=== PATIENT | female | born 1990 | race Caucasian/White ===

== ENCOUNTER → 2017-09-17 17:07 | Observation (INO) ==
[2017-09-17 16:32] LABS: Bilirubin,Urine Negative (Negative); Blood,Urine Negative (Negative); Clarity,Urine Cloudy (Clear); Color,Urine Yellow (Yellow); Glucose,Urine (UA) Normal (Normal); Ketones,Urine Negative (Negative); Leukocyte Esterase,Urine Large (Negative); Nitrite,Urine Negative (Negative); Protein,Urine Negative (Neg-Trace); Specific Gravity,Urine 1.018 (1.010-1.025); Urobilinogen,Urine Normal (Normal)
[2017-09-17 16:33] LABS: Bacteria,Urine Few per hpf (None-Few); Hyaline Casts,Urine None Seen per lpf (None-Few); RBC,Urine 0-3 per hpf (0-3); Squamous Epithelial Cell,Urine Many per lpf (None-Few); WBC,Urine 50-100 per hpf (0-3)
--- NOTE | 2017-09-17 16:40 | OB/GYN History & Physical ---
Date of Encounter: 09/17/17 Time of Encounter: 16:20 Assessment and Plan (1) 27 weeks gestation of Current visit: Yes Status: Acute (2) Decreased movement during Current visit: Yes Status: Acute - NST assessment. - UDS - UA Qualifiers: Fetus number: single or unspecified fetus Trimester: third trimester Qualified Code(s): O36.8130 - Decreased movements, third trimester, not applicable or unspecified (3) GERD (gastroesophageal reflux disease) Current visit: Yes Status: Acute - Consider PPI upon discharge. Qualifiers: Esophagitis presence: esophagitis presence not specified Qualified Code(s) : K21.9 - Gastro-esophageal reflux disease without esophagitis History of Present Illness Chief complaint: Decreased movement HPI: Ms. Thompson is a 27 year old female at 27 4/7 weeks gestation that presents for pre-term labor evaluation. Patient says that she feels decreased movement since 11 pm last night, however she says that since she has arrived to triage she has felt her baby move again normally. She denies vaginal fluid leakage and bleeding, She says that she has been keesha for the past hour every minute. She admits to SINGLETON and vision changes of blurriness throughout her but she currently denies it right now. She says she has a burning sensation in her chest whenever she lies down and occurs a few hours after she eats. This has been going on throughout her . She admits to shortness of breath with exertion but patient has a history of asthma and her SOB has been occuring for the past 3 years. She denies fever, chills. She admits to nausea and vomiting, but denies any hematemesis. She denies dysuria. She admits to one bout of diarrhea earlier this morning. HIV Ab/Ag: non-reactive T. Pallidum Ab: negative Rubella Ab: positive Varicella Ab: positive Blood Type: A+ HepBSAg: Non-reactive (06/11/17) GBS: unknown. Past Med Surg Social Fam HX - Past Medical History Medical history: asthma, migraine, other Psychiatric history: anxiety, depression - Past Surgical History Surgical History: cholecystectomy, other - Social History Smoking Status: Never smoker Smokeless Tobacco Status: No Alcohol use: none Drug use: none Obstetrical History - Pregnancies : 5 Para: 2 Term: 2 : 1 Ab's: 1 Livin Medications and Allergies Flintstones 1 tab PO DAILY 09/17/17 [History] 3 Allergy/AdvReac Type Severity Reaction Status Date / Time latex Allergy Rash Verified 04/22/17 19:43 Exam - Vital Signs Vital signs: BP: 118/65 HR: 83 FHR: 136 [place]: 15 - Constitutional Constitutional: well developed, well nourished, no acute distress, average body habitus - Lungs Respiratory exam: CTAB - Cardiovascular Cardiovascular exam: RRR, +S1, +S2 - Abdomen Abdomen: Present: bowel sounds normal, gravid, non tender - Extremities Extremities exam: full ROM, normal capillary refill, normal inspection, radial pulses palpable and symmetrical Deep Tendon Reflex Grade: 2+ Normal Results All other labs normal. - VTE Reasons for not Prescribing Prophylaxis: Treatment not Indicated - Low risk for VTE - Attending Attestation I examined this patient and my medical decision-making was reviewed with the Resident Physician. I agree with the documented findings, disposition and treatment plan as described except to the extent set forth below. MERYL Curtis
[2017-09-17 16:53] LABS: Amorphous Sediment,Urine Few (Few)
--- NOTE | 2017-09-17 17:01 | Discharge Summary ---
Date of Encounter: 09/17/17 Time of Encounter: 17:00 - Discharge Diagnosis (1) 27 weeks gestation of Priority: Primary Status: Acute Comments: patient admitted for observation (2) Decreased movement during Priority: Secondary Status: Acute Comments: REactive nst, baseline 135bpm patient reports feeling movement Qualifiers: Fetus number: single or unspecified fetus Trimester: third trimester Qualified Code(s): O36.8130 - Decreased movements, third trimester, not applicable or unspecified (3) GERD (gastroesophageal reflux disease) Priority: Secondary Status: Acute Qualifiers: Esophagitis presence: esophagitis presence not specified Qualified Code(s) : K21.9 - Gastro-esophageal reflux disease without esophagitis (4) NST (non-stress test) reactive on surveillance Priority: Secondary Status: Acute Comments: baseline 135 bpm moderate variability +15x15 accels no decels noted. - Discharge Medications Home Medications: Flintstones 1 tab PO DAILY 09/17/17 [History] Allergies/Adverse Reactions: 3 Allergy/AdvReac Type Severity Reaction Status Date / Time latex Allergy Rash Verified 04/22/17 19:43 Data Procedures and tests throughout hospitalization: Laboratory Tests 09/17/17 15:59 Urine Color Yellow Urine Clarity Cloudy A Urine pH 6.0 Ur Specific [place] 1.018 Urine Protein Negative Urine Glucose (UA) Normal Urine Ketones Negative Urine Blood Negative Urine Nitrite Negative Urine Bilirubin Negative Urine Urobilinogen Normal Ur Leukocyte Esterase Large H Urine Microscopic RBC 0-3 Urine Microscopic WBC 50-100 H Ur Squamous Epith Cells Many H Amorphous Sediment Few Urine Bacteria Few Hyaline Casts None Seen Ur Culture Indicated? YES A Labs on day of discharge: Labs from last 24 hours 09/17/17 15:59 Urine Color Yellow Urine Clarity Cloudy A Urine pH 6.0 Ur Specific [place] 1.018 Urine Protein Negative Urine Glucose (UA) Normal Urine Ketones Negative Urine Blood Negative Urine Nitrite Negative Urine Bilirubin Negative Urine Urobilinogen Normal Ur Leukocyte Esterase Large H Urine Microscopic RBC 0-3 Urine Microscopic WBC 50-100 H Ur Squamous Epith Cells Many H Amorphous Sediment Few Urine Bacteria Few Hyaline Casts None Seen Ur Culture Indicated? YES A Date of admission: 09/17/17 15:32 Primary care physician: Nicole Archuleta, VEGETABLE WASHING MACHINE OPERATOR Discharging clinician: Malika Clemente Anticipated date of discharge: 09/17/17 - Patient Status Disposition: Home, Self-Care Condition: Good Functional capacity at discharge: independent ambulation - Discharge Instructions Follow Up With: Nicole Archuleta CNP [Primary Care Provider] - Yuniel Caballero DO [Partnered Physician] - - Diet and Activity Activity: increase activity as tolerated Diet: regular diet Hospital Course CHEMICAL ENGRAVER Time Attestation: Total time spent providing and/or coordinating discharge services: Time Spent: Less than 30 minutes Exam - Constitutional General appearance IM: A&O X 3, pleasant, answers questions appropriately - Other Additional findings: FHR 135 bpm moderate variability +15x15 accels no decels noted. CAt. 1 tracing. no contractions noted. - VTE Reasons for not Prescribing Prophylaxis: Treatment not Indicated - Low risk for VTE
[2017-09-17 18:42] LABS: Amphetamine Screen,Urine Negative ng/mL (Cutoff=1000); Barbiturate Screen,Urine Negative ng/mL (Cutoff=200); Benzodiazepines Screen,Urine Negative ng/mL (Cutoff=200); Cannabinoid Screen,Urine Negative ng/mL (Cutoff = 50); Cocaine Screen,Urine Negative ng/mL (Cutoff= 300); Opiate Screen,Urine Negative ng/mL (Cutoff=300); Phencyclidine Screen,Urine Negative ng/mL (Cutoff=25)
== END | disposition home or self-care (01) ==
LOC: 1NENULAB
PROVIDERS: ADMIT Obstetrics & Gynecology; ATTEND Obstetrics & Gynecology

== ENCOUNTER → 2017-09-20 20:40 | Observation (INO) ==
[2017-09-20 17:02] LABS: Bilirubin,Urine Small (Negative); Blood,Urine Negative (Negative); Clarity,Urine Cloudy (Clear); Color,Urine Dark Yellow (Yellow); Glucose,Urine (UA) Normal (Normal); Ketones,Urine Negative (Negative); Leukocyte Esterase,Urine Moderate (Negative); Nitrite,Urine Negative (Negative); Protein,Urine Trace mg/dL (Neg-Trace); Specific Gravity,Urine > 1.030 (1.010-1.025); Urobilinogen,Urine Normal (Normal)
[2017-09-20 17:04] LABS: Bacteria,Urine Few per hpf (None-Few); RBC,Urine 0-3 per hpf (0-3); Squamous Epithelial Cell,Urine Many per lpf (None-Few); WBC,Urine 50-100 per hpf (0-3)
[2017-09-20 17:22] LABS: Hyaline Casts,Urine None Seen per lpf (None-Few); Mucus,Urine Many (Few)
--- NOTE | 2017-09-20 18:40 | OB/GYN Progress Note ---
Date of Encounter: 09/20/17 Time of Encounter: 18:29 - Assessment and Plan (1) Back pain affecting in third trimester Current Visit: Yes Status: Acute Rare contraction noted on monitor, but conitnue to complain of back pain. 1L LR bolus given. Cervical exam closed in office per Dr. Caballero note and inner os remains closed after 2 hours in triage (outer OS 2cm). Negative ferning. Vaginosis panel sent. Due to suprapubic pressure, and history of chronic UTI will give 5 days of macrobid. Pt states pain and cramping improved with bolus. Discharged to home with labor precautions. (2) 28 weeks gestation of Current Visit: Yes Status: Acute Subjective - Subjective Interval history: 28+0 weeks presents to triage from MD office with complaints of suprapubic and back pain. Pt states pain was sudden onset this morning prior to her appointment. No pain last night. No recent sexual activity. Pt states movement is present, but decreased from the last few days. Complains of vaginal discharge, but denies bleeding or leaking of fluid. Denies frequency of urination or dysuria, but states has a history of chronic UTI and prior to took daily preventative medication. Antepartum ROS: movement normal, contractions, no loss of fluid, no vaginal bleeding Objective - Vital Signs Vital Signs: Intake and Output 09/20/17 09/20/17 09/20/17 07:59 15:59 23:59 Other: Weight 93.1 kg Patient Weight 09/20/17 23:59 Weight 93.1 kg - Exam FHR: category 1 FHR comments: Baseline 150 15x15 accels noted Auscultation: bilateral: normal Abdomen: Present: normal appearance, soft, gravid Uterus: Present: normal Cervical dilation: Closed inner OS./long/ballotable Comments: negative CVA tenderness - Labs Labs: Abnormal lab results Urine Clarity Cloudy (Clear) A 09/20/17 16:50 Ur Specific [place] > 1.030 (1.010-1.025) H 09/20/17 16:50 Urine Bilirubin Small (Negative) H 09/20/17 16:50 Ur Leukocyte Esterase Moderate (Negative) H 09/20/17 16:50 Urine Microscopic WBC 50-100 per hpf (0-3) H 09/20/17 16:50 Ur Squamous Epith Cells Many per lpf (None-Few) H 09/20/17 16:50 Urine Mucus Many (Few) H 09/20/17 16:50 Ur Culture Indicated? YES (NO) A 09/20/17 16:50
[2017-09-20 20:06] LABS: Candida DNA ***DETECTED*** (Not Detect); Gardnerella DNA Not Detected (Not Detect); Trichomonas DNA Not Detected (Not Detect)
[~2017-09-20 20:40] MED LIST: FLUARIX QUAD 2017-18 36MOS UP/PF 0.5 ML SYRINGE IM ONE; Ringers Solution, Lactated 1,000 ML IVC ONE
[2017-09-21 00:19] LABS: Amphetamine Screen,Urine Negative ng/mL (Cutoff=1000); Barbiturate Screen,Urine Negative ng/mL (Cutoff=200); Benzodiazepines Screen,Urine Negative ng/mL (Cutoff=200); Cannabinoid Screen,Urine Negative ng/mL (Cutoff = 50); Cocaine Screen,Urine Negative ng/mL (Cutoff= 300); Opiate Screen,Urine Negative ng/mL (Cutoff=300); Phencyclidine Screen,Urine Negative ng/mL (Cutoff=25)
== END | disposition home or self-care (01) ==
LOC: 1NENULAB
PROVIDERS: ADMIT Obstetrics & Gynecology; ATTEND Obstetrics & Gynecology

== ENCOUNTER → 2017-10-18 20:08 | Observation (INO) ==
--- NOTE | 2017-10-18 19:21 | OB/GYN Progress Note ---
Date of Encounter: 10/18/17 Time of Encounter: 19:16 - Assessment and Plan (1) Constipation Current Visit: Yes Status: Acute at 32 0/7 EGA with perineal pressure with bowel movements - reports constipation for several days with hard bowel movement on Sunday and nothing since. Pt states this is a chronic problem. Pt does not take any stool softners or laxatives. Denies LOF, VB, VD, or CTX Reports some decreased FM today, but feeling movement here at L&D - T category I Will give dose of Colace and send with a prescription for Colace If still not having BMs regularly she is to take milk of magnesia Pt is stable and able to be discharged home. Discussed when to return to [facility] or call provider. Pt verbalizes understanding. Qualifiers: Constipation type: unspecified constipation type Qualified Code(s): K59.00 - Constipation, unspecified (2) 32 weeks gestation of Current Visit: Yes Status: Acute Subjective - Subjective Principal diagnosis: Lower perineal pressure Interval history: Ms. Thompson is a 27 year old female at 32 0/7 EGA presenting to L&D due to lower perineal pressure and pain. She reports that has been constipated and her pain is worse with bowel movements. She also has some mild bleeding with bowel movements. She denies LOF, contractions, vaginal bleeding, vaginal discharge. She is feeling movement, but thinks it has been decreased today. She reports that she is also being treated for pneumonia by her PCP and is on Azithromycin. She denies other symptoms, denies fevers, chills, headaches, blurred vision, upper abdominal pain, dysuria, or lower extremity edema. Antepartum ROS: no loss of fluid, no vaginal bleeding, no movement normal (feeling movement, but thinks movement has been decreased today), no contractions Objective - Vital Signs Vital Signs: Intake and Output 10/18/17 10/18/17 10/18/17 07:59 15:59 23:59 Other: Weight 95 kg Patient Weight 10/18/17 23:59 Weight 95 kg - Exam FHR: auscultation normal, category 1 Auscultation: bilateral: diminished throughout Abdomen: Present: normal appearance, soft, gravid. Absent: tenderness Uterus: Present: normal, firm Cervical dilation: Outer os 3, inner os closed - per abrasive worker
== END | disposition home or self-care (01) ==
LOC: 1NENULAB
PROVIDERS: ADMIT Obstetrics & Gynecology; ATTEND Obstetrics & Gynecology

== ENCOUNTER 2017-11-16 00:43 | Observation (INO) ==
--- NOTE | 2017-11-16 01:16 | OB/GYN Progress Note ---
Date of Encounter: 11/16/17 Time of Encounter: 02:26 - Assessment and Plan (1) 36 weeks gestation of Current Visit: Yes Status: Acute (2) Uterine contractions Current Visit: Yes Status: Acute Plan: - FHT assuring, FHR baseline= 125, Reactive NST - observation with serial cervical exams with no change -UA negative for UTI Pt safe for discharge home, with labor precautions, when to return to triage or call provider. Pt verbalizes understanding. (3) History of delivery, currently in third trimester Current Visit: Yes Status: Acute last in 2014 delivery at 36 weeks. Subjective - Subjective Principal diagnosis: uterine contractions Interval history: Mandi is a 27 y/o female at 36+4 weeks presented to L&D for uterine contractions. Patient states that they began this morning but became more frequent around 4pm. Patient was unable to tell me how many minutes between. patient admits to having sexual intercourse at 8pm which worsened contractions. Patient feels pain in her lower superpubic region and back. Patient states that she has not taken any pain medications. Patient admits to associated small bloody spotting. Denies leakage of fluid, SINGLETON, fever, dysuria, diarrhea, abdominal pain, blurry vision. Patient currently complaining of pain and nausea after cervical check. Antepartum ROS: contractions (reports contractions every 5-6 minutes) Objective - Vital Signs Vital Signs: normal - Exam FHR: category 1 Auscultation: bilateral: normal Abdomen: Present: normal appearance. Absent: tenderness Uterus: Present: normal Cervical dilation: 3cm Cervix effacement: thick station: high
[2017-11-16 02:06] LABS: Bilirubin,Urine Negative (Negative); Blood,Urine Negative (Negative); Color,Urine Yellow (Yellow); Glucose,Urine (UA) Normal (Normal); Ketones,Urine Negative (Negative); Leukocyte Esterase,Urine Negative (Negative); Nitrite,Urine Negative (Negative); PH,Urine 6.5 pH Units (5.0-8.0); Protein,Urine Negative (Neg-Trace); Specific Gravity,Urine 1.019 (1.010-1.025); Urobilinogen,Urine Normal (Normal)
[2017-11-16 02:07] LABS: Clarity,Urine Slightly Hazy (Clear)
[2017-11-16 02:12] LABS: Amphetamine Screen,Urine Negative ng/mL (Cutoff=1000); Barbiturate Screen,Urine Negative ng/mL (Cutoff=200); Benzodiazepines Screen,Urine Negative ng/mL (Cutoff=200); Cannabinoid Screen,Urine Negative ng/mL (Cutoff = 50); Cocaine Screen,Urine Negative ng/mL (Cutoff= 300); Opiate Screen,Urine Negative ng/mL (Cutoff=300); Phencyclidine Screen,Urine Negative ng/mL (Cutoff=25)
== END 2017-11-16 04:00 | disposition home or self-care (01) ==
LOC: 1NENULAB
PROVIDERS: ADMIT Registered Nurse; ATTEND Registered Nurse

== ENCOUNTER 2017-11-25 00:27 | Observation (INO) ==
[2017-11-25 00:47] VITALS: BP 131/60
[2017-11-25 01:31] LABS: Bilirubin,Urine Negative (Negative); Blood,Urine Negative (Negative); Clarity,Urine Cloudy (Clear); Color,Urine Yellow (Yellow); Glucose,Urine (UA) Normal (Normal); Ketones,Urine Negative (Negative); Leukocyte Esterase,Urine Large (Negative); Nitrite,Urine Negative (Negative); PH,Urine 7.5 pH Units (5.0-8.0); Protein,Urine Negative (Neg-Trace); Specific Gravity,Urine 1.014 (1.010-1.025)
[2017-11-25 01:36] LABS: Bacteria,Urine Moderate per hpf (None-Few); Hyaline Casts,Urine None Seen per lpf (None-Few); Squamous Epithelial Cell,Urine Many per lpf (None-Few); WBC,Urine 15-30 per hpf (0-3)
[2017-11-25 01:39] LABS: Amphetamine Screen,Urine Negative ng/mL (Cutoff=1000); Barbiturate Screen,Urine Negative ng/mL (Cutoff=200); Benzodiazepines Screen,Urine Negative ng/mL (Cutoff=200); Cannabinoid Screen,Urine Negative ng/mL (Cutoff = 50); Cocaine Screen,Urine Negative ng/mL (Cutoff= 300); Opiate Screen,Urine Negative ng/mL (Cutoff=300); Phencyclidine Screen,Urine Negative ng/mL (Cutoff=25)
[2017-11-25 01:47] LABS: Amorphous Sediment,Urine Moderate (Few)
[2017-11-25] MEDS ORDERED: Ondansetron 4 MG/2 ML VIAL IVP ONE (02:32)
[2017-11-25] MEDS ORDERED: Acetaminophen 325 MG TABLET PO ONE (02:32)
[2017-11-25] MEDS ORDERED: Ringers Solution, Lactated 1,000 ML IVC ONE (02:32)
[2017-11-25] MEDS ORDERED: cefTRIAXone 2,000 MG in Water for inj. (sterile) 20 ML 20 ML IVP ONE (02:34)
--- NOTE | 2017-11-25 02:56 | OB/GYN Progress Note ---
Date of Encounter: 11/25/17 Time of Encounter: 02:50 - Assessment and Plan (1) Influenza A Current Visit: Yes Status: Acute Rapid flu swab positive for influenza A. Tamiflu started. Pt treated for symptoms. Will discharge home with precautions after fluid bolus if able to tolerate PO fluids. (2) 37 weeks gestation of Current Visit: Yes Status: Acute NST reactive. (3) Acute cystitis during in third trimester Current Visit: Yes Status: Acute Rocephin IV followed by Keflex PO for 7 days. (4) NST (non-stress test) reactive on surveillance Current Visit: No Status: Acute Subjective - Subjective Principal diagnosis: cough, fever, vomiting, abdominal pain Interval history: 27 year-old presenting at 37w6d with c/o fever, cough, headache, body aches, and occassional contractions. She report feeling sick since with a cough and congestion. She reports onset of fever today. She also states she has vomited about 5 times today and has only been able to keep down a little bit of fluids. She denies LOF or VB. Good FM. Antepartum ROS: movement normal, contractions (occassional), no loss of fluid, no vaginal bleeding Objective - Vital Signs Vital Signs: Vital Signs Temp Pulse Resp BP 11/25/17 00:35 98.4 F 131 16 131/60 Intake and Output 11/24/17 11/24/17 11/25/17 15:59 23:59 07:59 Other: Weight 97.522 kg Patient Weight 11/25/17 23:59 Weight 97.522 kg - Exam FHR: category 1 FHR comments: 150 reactive NST Auscultation: bilateral: normal Abdomen: Present: soft, gravid. Absent: tenderness Uterus: Absent: tenderness Cervical dilation: 3 Cervix effacement: thick station: -2 Comments: SVE per nurse staff industrial - Labs Labs: Abnormal lab results Urine Clarity Cloudy (Clear) A 11/25/17 01:11 Urine Urobilinogen 2.0 mg/dL (Normal) H 11/25/17 01:11 Ur Leukocyte Esterase Large (Negative) H 11/25/17 01:11 Urine Microscopic WBC 15-30 per hpf (0-3) H 11/25/17 01:11 Ur Squamous Epith Cells Many per lpf (None-Few) H 11/25/17 01:11 Amorphous Sediment Moderate (Few) H 11/25/17 01:11 Urine Bacteria Moderate per hpf (None-Few) H 11/25/17 01:11
[2017-11-25 03:24] LABS: Basophils % 0.3 %; Eosinophils % 0.3 %; Hematocrit 33.6 % (35.3-44.9); Hemoglobin 11.3 g/dL (11.5-15.4); Immature Granulocytes % 0.7 % (0-4); Lymphocytes # 1.2 K/mcL (0.6-4.6); Lymphocytes % 12.1 %; Mean Corpuscular HGB Conc 33.6 g/dL (31.6-35.5); Mean Corpuscular Hemoglobin 28.8 pg (28.0-33.3); Mean Corpuscular Volume 85.5 fL (83.0-100.0); Mean Platelet Volume 9.7 fL (9.4-12.4); Monocytes # 1.3 K/mcL (0.0-1.3); Monocytes % 13.6 %; Neutrophils # 6.9 K/mcL (1.6-8.9); Platelet Count 171 K/mcL (140-400); Red Blood Count 3.93 M/mcL (3.82-4.97); Red Cell Distribution Width 14.6 % (11.5-14.5)
[2017-11-25 03:54] LABS: Alanine Aminotransferase 23 Units/L (7-52); Albumin 3.3 g/dL (3.5-5.7); Albumin/Globulin Ratio 1.2 (1.1-2.2); Alkaline Phosphatase 144 Units/L (34-104); Aspartate Amino Transferase 17 Units/L (13-39); BUN/Creatinine Ratio 11 (6-26); Bilirubin,Total 0.4 mg/dL (0.3-1.0); Blood Urea Nitrogen 5 mg/dL (6-20); Calcium 8.9 mg/dL (8.6-10.3); Carbon Dioxide 19 mEq/L (23-29); Chloride 106 mEq/L (98-107); Globulin 2.8 g/dL (2.4-3.5); Glucose 103 mg/dL (70-105); Lactate Dehydrogenase 98 Units/L (140-271); Osmolality,Calculated 276 (280-300); Potassium 3.7 mEq/L (3.5-5.1); Sodium 134 mEq/L (136-145); Total Protein 6.1 g/dL (6.4-8.9); Uric Acid 4.8 mg/dL (2.3-7.6); eGFR For African Americans > 60 (> 60); eGFR For Non-African Americans > 60 (> 60)
== END 2017-11-25 04:29 | disposition home or self-care (01) ==
LOC: 1NENULAB
PROVIDERS: ADMIT Student in an Organized Health Care Education/Training Program; ATTEND Student in an Organized Health Care Education/Training Program

== ENCOUNTER 2017-12-03 06:00 | Inpatient (IN) ==
[2017-12-03] MEDS ORDERED: Ondansetron 4 MG/2 ML VIAL IVP PRN (06:27)
[2017-12-03] MEDS ORDERED: Naloxone 0.4 MG/ML INJ IVP PRN (06:27)
[2017-12-03] MEDS ORDERED: *HR* Nalbuphine 20 MG/ML AMPUL IVP PRN (06:27)
[2017-12-03] MEDS ORDERED: Metoclopramide 10 MG/2 ML VIAL IVP PRN (06:27)
[2017-12-03] MEDS ORDERED: miSOPROStol 100 MCG TABLET PO PRN (06:27)
[2017-12-03] MEDS ORDERED: Famotidine 20 MG/2 ML VIAL IVP PRN (06:27)
[2017-12-03 06:56] LABS: Basophils % 0.3 %; Eosinophils # 0.1 K/mcL (0.0-0.6); Eosinophils % 1.4 %; Hemoglobin 12.4 g/dL (11.5-15.4); Immature Granulocytes % 0.7 % (0-4); Lymphocytes # 2.5 K/mcL (0.6-4.6); Lymphocytes % 24.1 %; Mean Corpuscular HGB Conc 33.5 g/dL (31.6-35.5); Mean Corpuscular Hemoglobin 28.9 pg (28.0-33.3); Mean Corpuscular Volume 86.2 fL (83.0-100.0); Mean Platelet Volume 9.8 fL (9.4-12.4); Monocytes # 0.7 K/mcL (0.0-1.3); Monocytes % 6.8 %; Neutrophils # 6.9 K/mcL (1.6-8.9); Platelet Count 232 K/mcL (140-400); Red Blood Count 4.29 M/mcL (3.82-4.97); Red Cell Distribution Width 15.1 % (11.5-14.5); Segmented Neutrophils % 66.7 %
[2017-12-03 07:04] LABS: Amphetamine Screen,Urine Negative ng/mL (Cutoff=1000); Barbiturate Screen,Urine Negative ng/mL (Cutoff=200); Benzodiazepines Screen,Urine Negative ng/mL (Cutoff=200); Cannabinoid Screen,Urine Negative ng/mL (Cutoff = 50); Cocaine Screen,Urine Negative ng/mL (Cutoff= 300); Opiate Screen,Urine Negative ng/mL (Cutoff=300); Phencyclidine Screen,Urine Negative ng/mL (Cutoff=25)
[2017-12-03] MEDS: Ringers Solution, Lactated 1,000 ML IVC SCH ×2 (07:28→15:06)
--- NOTE | 2017-12-03 07:57 | OB/GYN History & Physical ---
Date of Encounter: 12/03/17 Time of Encounter: 07:50 Assessment and Plan (1) and not yet delivered in third trimester Current visit: Yes Status: Acute (2) 39 weeks gestation of Current visit: Yes Status: Acute (3) Encounter for elective induction of labor Current visit: Yes Status: Acute Patient will be induced with by mouth Cytotec 50 g plan is to anticipate vaginal delivery (4) Decreased movement affecting management of in third trimester Current visit: Yes Status: Acute Qualifiers: Fetus number: single or unspecified fetus Qualified Code(s): O36.8130 - Decreased movements, third trimester, not applicable or unspecified History of Present Illness HPI: Ms. Thompson is a 27 year old female 5 para 2113 at 39-0/7 weeks by 18-2/7 week ultrasound who presented for induction of labor secondary to with favorable cervix. Patient was 3 cm and has been complaining of decreased movement since 35 weeks. We have been doing NSTs in the office and she is also been shown up on labor and delivery at least once a week for similar complaints. At 37 weeks NST was nonreactive she was sent for biophysical which was reassuring at 8 out of 8. We did see the patient last week again complaining of decreased movement it was reactive but with her inability to feel the baby did advise would induce her at 39 weeks. She has been having contractions no leaking of fluid even today she states she is not feeling the baby move much. Patient is GBS negative rubella positive Rh+. Past Med Surg Social Fam HX - Past Medical History Medical history: asthma, migraine, other (Interstitial cystitis) Psychiatric history: anxiety, depression - Past Surgical History Surgical History: cholecystectomy, other (Tonsillectomy, wisdom teeth extraction ) - Social History Smoking Status: Never smoker Smokeless Tobacco Status: No Alcohol use: none Drug use: none Occupational status: unemployed Current living situation: Home - Independent Activity Level: Independent ambulation Recent Out of Country Travel Within the Last 8 Weeks: No Exposure or Possible Exposure to Illness During Travel: No - Family History Father Adopted: No Family Member Ethnicity: Non- Living Status: Still Living Hx Family Cardiac Disorders: Yes Hx Family Respiratory Disorders: No Hx Family Cancer: No Hx Family GI Disorders: No Hx Family Genitourinary Disorders: No Hx Family Endocrine Disorder: No Hx Family Musculoskeletal Disorders: No Hx Family Neuromuscular Disorders: No Hx Family Neurologic Disorders: No Hx Family HEENT Disorders: No Hx Family Autoimmune Disorders: No Hx Family Reproductive Disorders: No Hx Family Psychosocial Disorders: No Hx Family Medical Disorders: No - Additional Family History Additional family history: Family history noncontributory Obstetrical History - Pregnancies : 5 Para: 3 Term: 2 : 1 Ab's: 2 Livin Medications and Allergies Docusate [Colace] 100 mg PO BID #60 capsule 10/18/17 [Rx] Ondansetron HCl [Zofran] 4 mg SL Q8HR PRN 10/18/17 [History] Amoxicillin [Amoxil] 500 mg PO TID 12/03/17 [History] 3 Allergy/AdvReac Type Severity Reaction Status Date / Time latex Allergy Intermediate Rash Verified 11/16/17 01:16 Review of System OB All systems PM: reviewed and no additional remarkable complaints except as stated Exam - Constitutional Constitutional: well developed, well nourished, no acute distress, average body habitus - HEENT HEENT: EOMI, PERRL, Mucus Membranes Moist - Neck Neck exam: full ROM - Lungs Respiratory exam: CTAB - Cardiovascular Cardiovascular exam: RRR - Extremities Extremities exam: calf tenderness - Vagina Vagina: Present: normal moisture - Cervix Dilation: 3 Effacement: 50 Station: -3 - Uterus Uterus exam: Present: normal size Results Result Diagrams: 12/03/17 06:43 Abnormal lab results RDW 15.1 % (11.5-14.5) H 12/03/17 06:43 All other labs normal. - VTE Reasons for not Prescribing Prophylaxis: Treatment not Indicated - Low risk for VTE
--- NOTE | 2017-12-03 08:00 | Anesthesia Evaluation PreOp ---
Date of Encounter: 12/03/17 Time of Encounter: 07:58 - Past History Planned Operation: shima Cardiac History: Denies any Significant Hx Pulmonary History: Asthma MD PSYCHIATRY History: Denies Any Significant HX Other Medical History: Denies Any Significant HX Anesthesia History: No Prior Anesthetic Complications, Past Anesthesia (aamir, t &a) : Yes (, 39 weeks) Alcohol Use: none Drug use: none Medications and Allergies Docusate [Colace] 100 mg PO BID #60 capsule 10/18/17 [Rx] Ondansetron HCl [Zofran] 4 mg SL Q8HR PRN 10/18/17 [History] Amoxicillin [Amoxil] 500 mg PO TID 12/03/17 [History] 3 Allergy/AdvReac Type Severity Reaction Status Date / Time latex Allergy Intermediate Rash Verified 11/16/17 01:16 - Meds/Allergy Pre-op Review Medications Reviewed: Yes Allergies Reviewed: Yes Beta Blockers on Current Med List: No Anesthesia Results - Labs 12/03/17 06:43 Anesthesia Exam O2 Sat Height 1.75 m Weight 97.8 kg bp 132/76 Height: 69 Weight: 97 - HEENT Pupil (Motor): Pupils equal Mallampati: II Teeth: Normal Oral Opening: Greater than 3 - MD PSYCHIATRY LOC: Oriented MD PSYCHIATRY Motor: Normal RUE, Normal LUE, Normal RLE, Normal LLE, Normal Face MD PSYCHIATRY Sensory: Normal: RUE, LUE, RLE, LLE, Face - Cardiac Rhythm: Regular Murmur: None JVD: No Carotid Bruit: No - Pulmonary Breath Sounds: bilateral Clear Respiratory Effort: Symmetrical Anesthesia Assess/Plan ASA Score: 2 Modified Mono Scale for Level of Consciousness: Cooperative, oriented, and tranquil Anesthetic Plan: Regional Monitoring Plan: Standard Monitors
[2017-12-03] MEDS ORDERED: *HR* Ropivacaine/PF 0.2% 20 ML VIAL ONE (13:28)
[2017-12-03] MEDS ORDERED: Epidural Premix (fent/bupiv) 110 ML EP ONE (13:28)
[2017-12-03] MEDS ORDERED: *HR* FentaNYL (PF) 100 MCG/2 ML VIAL ONE (13:32)
[2017-12-03] MEDS ORDERED: EPHEDrine 50 MG/ML VIAL IVP PRN (13:58)
[2017-12-03] MEDS ORDERED: *HR* Ropivacaine/PF 0.2% 10 ML AMPUL EP ONE (13:58)
[2017-12-03] MEDS ORDERED: *HR* FentaNYL (PF) 100 MCG/2 ML VIAL EP ONE (13:58)
[2017-12-03] MEDS ORDERED: Epidural Premix (fent/bupiv) 110 ML EP SCH (14:00)
--- NOTE | 2017-12-03 14:03 | Anesthesia Procedures ---
Date of Encounter: 12/03/17 Time of Encounter: 14:00 Procedures: Anesthesia - Epidural/Spinal Patient ID/Chart reviewed: Yes Patient examined: Yes OB Eval: Gestational age: 39 OB Eval: : 6 OB Eval: Hx Para: 3 OB Eval: Contractions: Non-stressed pattern Consent Obtained: Yes Supplemental Oxygen: None/Room Air Site Prep: Aseptic Technique Patient position: upright Local Anesthetic: Lidocaine 1% Amount of Local Anesthetic used: 15 Touhy Needle Gauge: 18 Touhy Needle Depth (cm): 7 Catheter Depth at Skin (cm): 12 Test Dose (1.5% Lido + Epi): Volume given (mls): 3 Test Dose Result: Negative Loading Dose: Fentanyl (mcg): 100 Loading Dose: Other: 2ml nss, 6ml 0.2% ropivicaine Loading Dose Administered: Thru Touhy Needle Infusion Med: 0.125% Bupivacaine w/ 2 mcg/ml Fentanyl Infusion Rate (mls/hr): [address]: Tegaderm Interspace Used: L2-L3 Loss of Resistance (HUGH): Yes Blood: No CSF: No Paresthesia: No
--- NOTE | 2017-12-03 14:47 | OB Labor Progress Note ---
Date of Encounter: 12/03/17 Time of Encounter: 14:44 Labor Progress Note - Subjective Subjective: Patient resting comfortable with epidural in place. [place] catheter draining clear yellow urine. Discussed POC with patient. Patient denies any questions or concerns. - Cervix Cervix: 5/60/-1 - Heart Tones Heart Tones: 135 bpm moderate variability +15x15 accels early decel noted after arom. - [place]: 2-6 min apart - Interventions Interventions: SVE, AROM moderate amount of clear fluid. IUPC placed without difficulty. Patient tolerated well. - Plan Plan: Continue labor management. Will start pitocin for adequate labor pattern if needed.
[2017-12-03] MEDS ORDERED: Oxytocin 20 units/ LR 1000 mL 20 UNIT/1,000 ML BAG IVC SCH ×2 (15:00→21:00)
[2017-12-03] MEDS ORDERED: Ringers Solution, Lactated 2,000 ML ONE (15:03)
--- NOTE | 2017-12-03 18:56 | OB Labor Progress Note ---
Date of Encounter: 12/03/17 Time of Encounter: 18:50 Labor Progress Note - Subjective Subjective: Patient is still very comfortable not feeling her contractions at this time - Cervix Cervix: 9/90/+1 - Heart Tones Heart Tones: heart tones 140s reactive - Grenelefe Grenelefe: Contractions every 2 minutes - Plan Plan: Plan is to anticipate normal spontaneous vaginal delivery
--- NOTE | 2017-12-03 19:42 | OB/GYN Procedure Note ---
Delivery - Delivery Date: 12/03/17 Provider: Yuniel Caballero Intrapartum events: none Delivery induction: misoprostol Delivery augmentation: rupture of membranes, pitocin Delivery monitor: external FHT, external uterine, internal uterine Anesthesia: epidural Estimated Blood Loss: 100 - (s) A Delivery Date: 12/03/17 Delivery Time: 19:19 Presentation: vertex Position: CARMEN Route of delivery: Gender: Male Viability: Viable Pounds: 7 Ounces: 2 Weight Gram: 3.24 kg at 1 minute: 9 at 5 mins: 9 Shoulder Dystocia: not encountered Specimens collected: cord blood Placenta: spontaneous Cord: 3 umbilical vessels - Repair Episiotomy: none Laceration Description: None - Complications Delivery complications: none Delivery comments: Patient is a 27-year-old 5 para 2113 at 39-0/7 weeks who presented for induction of labor secondary to term with favorable cervix. Patient has had multiple visits over the past 3 weeks for decreased movements with delivery and office. She still not feeling the baby move today so recommended we get the baby out. She was 3cm dilated on admission by mouth Cytotec was given. Patient was artificially ruptured after she eats and epidural and was 5-6 and is at this point. Patient progressed to 9 cm started having some deep variable decelerations were able to push through the cervix and patient delivered a viable male infant in right occiput anterior presentation at 1919. There was no nuchal cord, no meconium, infant was bulb suctioned on the abdomen. Placenta was then delivered spontaneously with three- vessel cord, cable installer at the first summer Caballero OMS 3, anesthesia epidural, estimated blood loss 100 mL. Perineum cervix and vagina was visualized intact patient tolerated delivery well. She will be observed 2 hours before being taken the floor. - Disposition Mom disposition: stable in LDR Horace disposition: stable in LDR
[2017-12-03] MEDS ORDERED: Acetaminophen 325 MG TABLET PO PRN (21:00)
[2017-12-03] MEDS ORDERED: Measles/Mumps/Rubella Vacc 0.5 ML VIAL SQ PRN (21:00)
[2017-12-03] MEDS ORDERED: Oxytocin 20 units/ LR 1000 mL 20 UNIT/1,000 ML BAG IVC ONE (21:28)
[2017-12-04 07:24] LABS: Basophils % 0.3 %; Eosinophils # 0.1 K/mcL (0.0-0.6); Hematocrit 36.2 % (35.3-44.9); Hemoglobin 11.8 g/dL (11.5-15.4); Immature Granulocytes % 0.5 % (0-4); Lymphocytes % 22.4 %; Mean Corpuscular HGB Conc 32.6 g/dL (31.6-35.5); Mean Corpuscular Hemoglobin 28.9 pg (28.0-33.3); Mean Corpuscular Volume 88.7 fL (83.0-100.0); Mean Platelet Volume 9.5 fL (9.4-12.4); Monocytes # 1.3 K/mcL (0.0-1.3); Monocytes % 10.1 %; Neutrophils # 8.7 K/mcL (1.6-8.9); Platelet Count 195 K/mcL (140-400); Red Blood Count 4.08 M/mcL (3.82-4.97); Red Cell Distribution Width 15.2 % (11.5-14.5); Segmented Neutrophils % 65.7 %
[2017-12-04] MEDS: Ibuprofen 600 MG TABLET PO PRN ×3 (08:00→20:02)
[2017-12-04] MEDS: Prenatal Vit/FA 1 EACH TABLET PO SCH (08:00)
--- NOTE | 2017-12-04 08:39 | Discharge Summary ---
Date of Encounter: 12/04/17 Time of Encounter: 08:37 - Discharge Diagnosis (1) Vaginal delivery Priority: Primary Status: Acute Comments: Patient is meeting all post- milestones. Complaints of some lower back pain but is requesting to discharge home later this evening. - Discharge Medications Prescriptions: Ibuprofen [Motrin] 600 mg PO Q6HR PRN #30 tablet PRN Reason: Cramping Docusate [Colace] 100 mg PO BID #30 capsule Home Medications: Acetaminophen [Tylenol] 650 mg PO Q6HR PRN tablet 12/04/17 [Rx] Docusate [Colace] 100 mg PO BID #30 capsule 12/04/17 [Rx] Ibuprofen [Motrin] 600 mg PO Q6HR PRN #30 tablet 12/04/17 [Rx] Vit/FA 1 each PO DAILY tablet 12/04/17 [Rx] Allergies/Adverse Reactions: 3 Allergy/AdvReac Type Severity Reaction Status Date / Time latex Allergy Intermediate Rash Verified 11/16/17 01:16 Data Procedures and tests throughout hospitalization: Laboratory Tests 12/03/17 12/03/17 12/04/17 06:43 06:43 07:06 WBC 10.3 13.2 H RBC 4.29 4.08 Hgb 12.4 11.8 Hct 37.0 36.2 MCV 86.2 88.7 MCH 28.9 28.9 MCHC 33.5 32.6 RDW 15.1 H 15.2 H Plt Count 232 195 MPV 9.8 9.5 Immature Gran % 0.7 0.5 Seg Neutrophils % 66.7 65.7 Lymphocytes % 24.1 22.4 Monocytes % 6.8 10.1 Eosinophils % 1.4 1.0 Basophils % 0.3 0.3 Neutrophils # 6.9 8.7 Lymphocytes # 2.5 3.0 Monocytes # 0.7 1.3 Eosinophils # 0.1 0.1 Basophils # 0.0 0.0 Urine Opiates Screen Negative Ur Barbiturates Screen Negative Ur Phencyclidine Scrn Negative Ur Amphetamines Screen Negative U Benzodiazepines Scrn Negative Urine Cocaine Screen Negative U Marijuana (THC) Screen Negative Labs on day of discharge: Labs from last 24 hours 12/04/17 07:06 WBC 13.2 H RBC 4.08 Hgb 11.8 Hct 36.2 MCV 88.7 MCH 28.9 MCHC 32.6 RDW 15.2 H Plt Count 195 MPV 9.5 Immature Gran % 0.5 Seg Neutrophils % 65.7 Lymphocytes % 22.4 Monocytes % 10.1 Eosinophils % 1.0 Basophils % 0.3 Neutrophils # 8.7 Lymphocytes # 3.0 Monocytes # 1.3 Eosinophils # 0.1 Basophils # 0.0 - Impressions Patient is meeting all post- milestones. Date of admission: 12/03/17 06:01 Primary care physician: PCP NONE Consults: 12/03/17 21:00 Consult to Nail Sticker [CONS] Routine Comment: Vaginal delivery, consult needed Discharging clinician: Rimma Whitt Anticipated date of discharge: 12/04/17 - Patient Status Disposition: Home, Self-Care Condition: Good Functional capacity at discharge: independent ambulation Overall status at discharge: patient is progressing back to baseline - Discharge Instructions Follow Up With: Yuniel Caballero, [Partnered Physician] - - Diet and Activity Activity: increase activity as tolerated Diet: regular diet Hospital Course Reason for admission: induction of labor Delivery: Episiotomy: none Laceration: none Other procedures: none complications: none Discharge diagnosis: IUP at term delivered Milnor baby: male Hospital course: Delivery - Delivery Date: 12/03/17 Provider: Yuniel Caballero Intrapartum events: none Delivery induction: misoprostol Delivery augmentation: rupture of membranes, pitocin Delivery monitor: external FHT, external uterine, internal uterine Anesthesia: epidural Estimated Blood Loss: 100 - Infant (s) A Infant Delivery Date: 12/03/17 Infant Delivery Time: 19:19 Presentation: vertex Position: CARMEN Route of delivery: Gender: Male Viability: Viable Pounds: 7 Ounces: 2 Weight Gram: 3.24 kg at 1 minute: 9 at 5 mins: 9 Shoulder Dystocia: not encountered Specimens collected: cord blood Placenta: spontaneous Cord: 3 umbilical vessels Time Attestation: Total time spent providing and/or coordinating discharge services: Time Spent: Less than 30 minutes Exam - Constitutional Vitals: Temp Pulse Resp BP Pulse Ox 97.7 F 87 12 116/75 98 12/04/17 08:00 12/04/17 08:00 12/04/17 08:00 12/04/17 08:00 12/04/17 08:00 General appearance IM: A&O X 3, pleasant - Respiratory Respiratory exam: Present: CTAB - Cardiovascular Cardiovascular exam IM: Present: RRR, +S1, +S2 - GI/Abdominal GI/Abdominal exam IM: normal bowel sounds, soft, tenderness (appropriately tender) - Rectal Rectal exam: deferred - Uterine Tone: Firm Uterus Position: At Umbilicus - Extremities Exam Extremities exam IM: Present: normal inspection - Neurological Exam Neurological exam: alert, oriented X3, reflexes normal - Psychiatric Additional comments: Patient reports mood is good.
[2017-12-05] MEDS: Ibuprofen 600 MG TABLET PO PRN ×2 (03:20→09:11)
[2017-12-05] MEDS: Prenatal Vit/FA 1 EACH TABLET PO SCH (09:11)
[2017-12-05 09:48] VITALS: BP 99/65
== END 2017-12-05 11:30 | disposition home or self-care (01) | DRG 560 ==
LOC: 1NENULAB 06:01 → 1NENUOBS 22:02
PROVIDERS: ADMIT Obstetrics & Gynecology; ATTEND Obstetrics & Gynecology